=== PATIENT | male | born 1980 | race Caucasian/White ===

== ENCOUNTER 2023-02-22 19:50 | Emergency (ER) | payer BC, OTHER ==
[~2023-02-22] VITALS: Ht 198.1 cm; Wt 117.3 kg
[2023-02-22 20:10] VITALS: BP 151/91; PULSE 111; RESP 18; TEMP 97.9
[2023-02-22 21:44] VITALS: O2SAT 94
== END 2023-02-22 21:52 | disposition home or self-care (01) ==
LOC: ER 19:53
DX: S90.01XA Contusion of right ankle, initial encounter (principal); I10 Essential (primary) hypertension; W22.8XXA Striking against or struck by other objects, initial encounter; Y93.89 Activity, other specified; Y92.89 Other specified places as the place of occurrence of the external cause; Y99.8 Other external cause status
CPT/HCPCS: 73610